=== PATIENT | male | born 1970 | race Caucasian/White ===

== ENCOUNTER → 2017-12-17 | Outpatient (CLI) | payer BC ==
[2017-12-17 13:04] LABS: PLATELET COUNT, AUTOMATED 343 K/uL (150-450)
== END ==
LOC: LAB 12:45
PROVIDERS: ATTEND Family Medicine
DX: R31.9 Hematuria, unspecified (principal)
CPT/HCPCS: 36415; 82310; 82374; 82435; 82565; 82947; 84132; 84153; 84295; 84520; 85025

== ENCOUNTER → 2017-12-18 | Outpatient (CLI) | payer BC ==
[~2017-12-18] MED LIST: IOPAMIDOL 76% 75 ML INFUS BTL 75 ML ONE
--- NOTE | 2017-12-18 13:56 | RADIOLOGY IMAGING REPORT ---
[place] [facility] [place] NAME: Bill Diaz : 1970 MR: [id number] V: [id number] EXAM DATE: ORDERING PHYSICIAN: ONUR ROSARIO TECHNOLOGIST: Location: [facility] Patient: Bill Diaz : 1970 Visit/Account:[id number] Date of Sevice: 12/18/2017 ABDOMEN/PELVIS W/WO CONTRAST HISTORY: Hematuria TECHNIQUE: Axial images acquired through the abdomen/pelvis both with and without IV contrast.. Gabriele nal and sagittal reformatting also performed. Dose Lowering Technique One of the following dose optimization techniques was utilized in the performance of this exam: Autom ated exposure control; adjustment of the mA and/or kV according to the patient's size; or use of an i terative reconstruction technique. Specific details can be referenced in the facility's radiology C T exam operational policy. CONTRAST: 75 mL Isovue-[id number] COMPARISON: None. FINDINGS: Visualized lung bases: Negative. Hepatobiliary: There is diffuse hepatic steatosis Spleen: Negative. Adrenals: Negative. Pancreas: Negative. Kidneys ureters and bladder: There are three calculi in the distal left ureter at the left UVJ. Two contiguous distal calculi measure 8.3 x 3.80 m collectively. The most proximal of the three measures approximately 3 x 4 mm. There is an associated mild left hydronephrosis and moderate left hydrouret er. There also appears to be mild thickening of the bladder adjacent to the left UVJ Genitalia: There are coarse calcifications within the prostate gland GI: There is no evidence of bowel obstruction or bowel wall thickening. The appendix is visualized and does not appear inflamed Vessels/spaces/nodes: Negative. Bones/soft tissues: There is a small umbilical hernia containing fat. A small knuckle of nonobstruc jesus small bowel lies at the entrance of the hernia opening.. There mild spondylotic changes of the t horacal lumbar spine Additional findings: None pertinent. IMPRESSION: There is a mild left hydronephrosis and moderate left hydroureter secondary to three calculi in the d istal left ureter at the left UVJ as described above. There appears to be thickening of the bladder adjacent to the left UVJ which may be inflammatory although follow-up recommended Small umbilical hernia containing fat. A small knuckle of nonobstructed small bowel lies at the entr ance to the hernia opening Diffuse hepatic steatosis Report Dictated By: Anai Chapman MD at 12/18/2017 1:43 PM Report E-Signed By: Anai Chapman MD at 12/18/2017 1:52 PM WSN:[id number]
== END ==
LOC: CT 04:22
PROVIDERS: ATTEND Family Medicine
DX: K76.0 Fatty (change of) liver, not elsewhere classified (principal); N20.0 Calculus of kidney; N13.30 Unspecified hydronephrosis; N13.4 Hydroureter; N40.3 Nodular prostate with lower urinary tract symptoms; K42.9 Umbilical hernia without obstruction or gangrene; M47.895 Other spondylosis, thoracolumbar region
CPT/HCPCS: 74178; Q9967